=== PATIENT | male | born 1960 | race Caucasian/White ===

== ENCOUNTER 2017-04-24 14:41 | Emergency (ER) | payer OTHER ==
[~2017-04-24] VITALS: Ht 175.3 cm; Wt 98.9 kg
[~2017-04-24 14:41] MED LIST: BENTYL10 MG PO; BUDESONIDE EC3 MG PO; DYAZIDE 37.5-251 EA PO; FERROUS SULFAT324 MG PO; FLOMAX0.4 MG PO; FLOVENT HFA12 GM INH; FLUOXETINE HCL20 MG PO; HYDROCODON-ACE1 EAC8 PO; LISINOPRIL40 MG PO; LOPERAMIDE2 MG PO; MELOXICAM15 MG PO; MIRTAZAPINE45 MG PO; NORCO 10-325 T1 EACH PO; NORCO 5-325 TA1 EACH PO; NORVASC10 MG PO; PANTOPRAZOLE SO40 MG PO; PREVALITE PACKET4 GM PO; SALINE NASAL M126 ML NS; SYMBICORT 80-10.2 GM INH; TERAZOSIN HCL5 MG PO; THEOPHYLLINE A300 MG PO; VENTOLIN HFA18 GM INH; ZYRTEC10 MG PO
[2017-04-24] MEDS ORDERED: FLUVOXAMINE MA100 MG PO (15:15)
[2017-04-24] MEDS ORDERED: LIPITOR40 MG PO (15:15)
[2017-04-24] MEDS ORDERED: CALCIUM 600 +1 EAC8 PO (15:15)
[2017-04-24] MEDS ORDERED: CAPZASIN-HP42.5 GM TOP (15:16)
[2017-04-24] MEDS ORDERED: COZAAR50 MG PO (15:16)
[2017-04-24] MEDS ORDERED: STOOL SOFTENER250 MG PO (15:16)
[2017-04-24] MEDS ORDERED: NAPROXEN500 MG PO (15:17)
[2017-04-24] MEDS ORDERED: RANITIDINE HCL300 MG PO (15:17)
[2017-04-24] MEDS ORDERED: CLINDAMYCIN HC300 MG PO (17:19)
== END 2017-04-24 18:08 | disposition home or self-care (01) ==
LOC: ED 14:41
PROC: 0C943ZZ Drainage of Buccal Mucosa, Percutaneous Approach (ICD-10-PCS; principal; 2017-04-24)
DX: K12.2 Cellulitis and abscess of mouth (principal); J45.909 Unspecified asthma, uncomplicated; I10 Essential (primary) hypertension; E78.5 Hyperlipidemia, unspecified; K21.9 Gastro-esophageal reflux disease without esophagitis; Z87.891 Personal history of nicotine dependence; Z79.899 Other long term (current) drug therapy
CPT/HCPCS: 10160; 80053; 85025; 96361; 96365; 99283; J7030